=== PATIENT | male | born 1930 | race Caucasian/White ===

== ENCOUNTER 2017-07-15 13:20 | Inpatient (IN) | payer OTHER ==
[~2017-07-15] VITALS: Ht 172.7 cm; Wt 66.7 kg
[2017-07-15 13:33] VITALS: BP 107/84
[2017-07-15 13:38] LABS: ABSOLUTE EOSINOPHILS 0.1 thou/uL (0.0-0.7); ABSOLUTE LYMPHOCYTES 2.4 thou/uL (0.8-5.3); ABSOLUTE MONOCYTES 0.7 thou/uL (0.0-1.2); ABSOLUTE NEUTROPHILS 2.7 thou/uL (1.6-8.1); BASOPHILS 0.8 %; EOSINOPHILS 2.2 %; HEMATOCRIT 26.2 % (42.0-52.0); HEMOGLOBIN 8.6 gm/dL (14.0-18.0); LYMPHOCYTES 39.6 %; MCH 27.7 pg (26.0-34.0); MCHC 32.7 g/dL (28.0-37.0); MCV 84.6 fL (80.0-100.0); MONOCYTES 12.2 %; MPV 8.6 fl. (7.2-11.1); NUCLEATED RBCS 0 /100WBC; PLATELET COUNT* 204 thou/uL (150-400); POLYS 45.2 %; RBC 3.09 mil/uL (4.50-6.00); RDW-CV 17.6 % (10.5-14.5)
[2017-07-15 13:46] LABS: ANION GAP 7 mmol/L (7-16); BUN 31 mg/dL (7-18); CALCIUM 8.5 mg/dL (8.5-10.1); CHLORIDE 105 mmol/L (98-107); CO2 28 mmol/L (21-32); CREATININE 1.7 mg/dL (0.6-1.3); GLUCOSE 112 mg/dL (70-99); POTASSIUM 3.6 mmol/L (3.5-5.1); SODIUM 140 mmol/L (136-145)
[2017-07-15 13:54] LABS: ALBUMIN 2.9 g/dL (3.4-5.0); ALKALINE PHOSPHATASE 90 U/L (46-116); SGOT 28 U/L (15-37); SGPT 17 U/L (30-65); TOTAL BILIRUBIN 0.4 mg/dL (<0.1-1.0); TOTAL PROTEIN 6.7 g/dL (6.4-8.2); TROPONIN-I LEVEL <0.06 ng/mL (<0.06)
[2017-07-15 14:02] LABS: APTT 28.3 Seconds (25.0-31.3); INR 1.1; PROTIME 10.8 Seconds (9.20-11.50)
[2017-07-15 14:25] LABS: URINE BILIRUBIN NEGATIVE (Negative); URINE BLOOD NEGATIVE (Negative); URINE CLARITY CLEAR; URINE COLOR STRAW; URINE GLUCOSE-RANDOM NEGATIVE (Negative); URINE KETONES NEGATIVE (Negative); URINE LEUKOCYTES-REFLEX NEGATIVE (Negative); URINE NITRITE-REFLEX NEGATIVE (Negative); URINE PROTEIN NEGATIVE (Negative); URINE UROBILINOGEN 0.2 E.U./dl (0.2-1.0)
[2017-07-15] MEDS ORDERED: TOPROL XL25 MG PO (14:47)
[2017-07-15] MEDS ORDERED: TRAZODONE HCL100 MG PO (14:47)
[2017-07-15] MEDS ORDERED: OMEPRAZOLE40 MG PO (14:48)
[2017-07-15] MEDS ORDERED: CARDURA4 MG PO (14:48)
[2017-07-15] MEDS ORDERED: VITAMIN D1000 UNIT PO (14:48)
[2017-07-15] MEDS ORDERED: ALLOPURINOL 10100 M1 PO (14:48)
[2017-07-15] MEDS ORDERED: LASIX 40 MG TAB40 M2 PO (14:48)
--- NOTE | 2017-07-15 16:24 | EKG ---
[place] [address] ELECTROCARDIOGRAM REPORT Name: YADIRA ROJO Room: [place] [address] 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 FAIR : 1930 Requested By: Hang Caballero Order Number: [id number] MD: Efren Barba Measurements Intervals [place] Rate: 54 P: -14 AR: 208 QRS: 96 QRSD: 171 T: 8 QT: 516 QTc: 490 Interpretive Statements Sinus rhythm Probable left atrial enlargement Right bundle branch block Baseline wander in lead(s) II,III,aVF No previous ECG available for comparison Electronically Signed On 07-15-2017 16:23:59 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
[2017-07-15 21:30] VITALS: BP 116/76
[2017-07-16] VITALS: BP 111/55
[2017-07-16 01:05] LABS: HEMATOCRIT 26.3 % (42.0-52.0); HEMOGLOBIN 8.6 gm/dL (14.0-18.0); MCH 27.3 pg (26.0-34.0); MCHC 32.5 g/dL (28.0-37.0); MCV 84.2 fL (80.0-100.0); MPV 8.4 fl. (7.2-11.1); RBC 3.13 mil/uL (4.50-6.00); WBC 6.3 thou/uL (4.0-11.0)
[2017-07-16 01:23] LABS: ALBUMIN 2.9 g/dL (3.4-5.0); CALCIUM 8.4 mg/dL (8.5-10.1); CREATININE 1.6 mg/dL (0.6-1.3); MAGNESIUM 2.2 mg/dL (1.8-2.4); POTASSIUM 3.9 mmol/L (3.5-5.1); TOTAL BILIRUBIN 0.3 mg/dL (<0.1-1.0); TOTAL PROTEIN 6.3 g/dL (6.4-8.2)
[2017-07-16 04:00] VITALS: BP 116/61
[2017-07-16 08:17] VITALS: BP 132/67
[2017-07-16 12:00] VITALS: BP 122/57
[2017-07-16 16:00] VITALS: BP 141/53
--- NOTE | 2017-07-16 17:32 | 2DMMODE ---
[place] [address] 2 D/M-MODE ECHOCARDIOGRAM Name: YADIRA ROJO Gabino Room: [address] IN [facility]#: [id number] Admission: 07/15/17 Attend Phys: Amada Ernst, Discharge: Date of : [birth year] Date of Service: 07/16/17 1732 Report #: [id number] THIS REPORT FOR: //name// APPROVED REPORT Study performed: 07/16/2017 11:28:57 EXAM: Comprehensive 2D, Doppler, and color-flow Echocardiogram Patient Location: In-Patient Room #: [facility] Status: 3 BSA: 1.76 HR: 76 bpm BP: 132/67 mmHg Rhythm: NSR Other Information Study Quality: Good Indications Pre-Op 2D Dimensions LVEF(%): 63.50 (>50%) IVSd: 11.35 (7-11mm) LVOT Diam: 22.31 (18-24mm) LVDd: 40.31 mm PWd: 10.80 (7-11mm) Ascending Ao: 32.14 (22-36mm) LVDs: 26.59 (25-40mm) Aortic Root: 35.21 mm Fabian's LVEF: 63.50 % Volumes Left Atrial Volume (Systole) LA ESV Index: 29.20 mL/m2 Aortic Valve AoV Peak Jacoby.: 1.76 m/s AO Peak Gr.: 12.35 mmHg LVOT Max P.55 mmHg AO Mean Gr.: 6.79 mmHg LVOT Mean P.86 mmHg LVOT Max V: 1.18 m/s AO V2 VTI: 40.18 cm LVOT Mean V: 0.79 m/s GUILLERMO (VTI): 2.74 cm2 LVOT V1 VTI: 28.21 cm Mitral Valve E/A Ratio: 1.27 [place] [address] 2 D/M-MODE ECHOCARDIOGRAM Name: YADIRA ROJO Room: [address] IN [facility]#: [id number] Admission: 07/15/17 Attend Phys: Amada Ernst, Discharge: Date of : [birth year] Date of Service: 07/16/17 1732 Report #: [id number] MV Decel. Time: 171.97 ms MV E Max Jacoby.: 0.94 m/s MV PHT: 49.87 ms MVA (PHT): 4.41 cm2 TDI E/Lateral E': 18.80 E/Medial E': 15.67 Medial E' Jacoby.: 0.06 m/s Lateral E' Jacoby.: 0.05 m/s Pulmonary Valve PV Peak Jacoby.: 0.74 m/s PV Peak Gr.: 2.17 mmHg Tricuspid Valve TR Peak Gr.: 24.14 mmHg RVSP: 29.00 mmHg Left Ventricle The left ventricle is normal size. There is normal LV segmental wall motion. There is normal left ventricular wall thickness. Left ventricular systolic function is normal. LVEF is 60-65%. Transmitral Doppler flow pattern suggests impaired LV relaxation. Right Ventricle Right ventricle is mildly dilated. The right ventricular systolic function is normal. Atria Left atrium is mildly dilated. Right atrium is mildly dilated. Aortic Valve Moderate aortic valve sclerosis. No aortic regurgitation is present. There is no aortic valvular stenosis. Mitral Valve The mitral valve is normal in structure. There is no mitral valve regurgitation noted. No evidence of mitral valve stenosis. Tricuspid Valve The tricuspid valve is normal in structure. Mild tricuspid regurgitation. The RVSP is ___29____ mmHg. Pulmonic Valve The pulmonary valve is normal in structure. There is no pulmonic [place] [address] 2 D/M-MODE ECHOCARDIOGRAM Name: YADIRA ROJO Room: [address] IN [facility]#: [id number] Admission: 07/15/17 Attend Phys: Amada Ernst, Discharge: Date of : [birth year] Date of Service: 07/16/17 1732 Report #: [id number] Great Vessels The aortic root is normal in size. IVC is normal in size and collapses with >50% inspiration Pericardium There is no pericardial effusion. <Conclusion> The left ventricle is normal size. There is normal left ventricular wall thickness. Left ventricular systolic function is normal. LVEF is 60-65%. Transmitral Doppler flow pattern suggests impaired LV relaxation. Left atrium is mildly dilated. Right ventricle is mildly dilated. Left atrium is mildly dilated. Right atrium is mildly dilated. Moderate aortic valve sclerosis. There is no aortic valvular stenosis. Mild tricuspid regurgitation. The RVSP is ___29____ mmHg. <ELECTRONICALLY SIGNED> By: Ming Ramirez MD, FACC 07/16/17 173 31 31 Ming Ramirez MD, FACC /INF
[2017-07-16 18:03] VITALS: BP 122/57
[2017-07-17 00:15] VITALS: BP 152/64
[2017-07-17 04:00] VITALS: BP 141/72
[2017-07-17 08:16] VITALS: BP 135/66
[2017-07-17 09:54] LABS: ABSOLUTE EOSINOPHILS 0.1 thou/uL (0.0-0.7); ABSOLUTE LYMPHOCYTES 0.7 thou/uL (0.8-5.3); ABSOLUTE MONOCYTES 0.6 thou/uL (0.0-1.2); ABSOLUTE NEUTROPHILS 5.7 thou/uL (1.6-8.1); BASOPHILS 0.4 %; EOSINOPHILS 1.4 %; HEMATOCRIT 26.5 % (42.0-52.0); HEMOGLOBIN 8.5 gm/dL (14.0-18.0); LYMPHOCYTES 10.2 %; MCH 27.3 pg (26.0-34.0); MCHC 32.2 g/dL (28.0-37.0); MCV 84.8 fL (80.0-100.0); MONOCYTES 8.7 %; MPV 8.2 fl. (7.2-11.1); NUCLEATED RBCS 0 /100WBC; PLATELET COUNT* 195 thou/uL (150-400); POLYS 79.3 %; RBC 3.12 mil/uL (4.50-6.00); RDW-CV 17.6 % (10.5-14.5); WBC 7.2 thou/uL (4.0-11.0)
[2017-07-17 10:02] LABS: CALCIUM 8.2 mg/dL (8.5-10.1); CREATININE 1.3 mg/dL (0.6-1.3); MAGNESIUM 2.2 mg/dL (1.8-2.4); PHOSPHORUS* 2.5 mg/dL (2.5-4.9); POTASSIUM 4.5 mmol/L (3.5-5.1)
[2017-07-17 12:00] VITALS: BP 130/77
[2017-07-17 20:39] VITALS: BP 142/67
[2017-07-18] VITALS: BP 140/68
[2017-07-18 04:00] VITALS: BP 132/64
[2017-07-18 05:42] LABS: CALCIUM 8.1 mg/dL (8.5-10.1); CREATININE 1.4 mg/dL (0.6-1.3); POTASSIUM 4.2 mmol/L (3.5-5.1)
[2017-07-18 05:46] LABS: ABSOLUTE EOSINOPHILS 0.2 thou/uL (0.0-0.7); ABSOLUTE LYMPHOCYTES 0.9 thou/uL (0.8-5.3); ABSOLUTE MONOCYTES 0.8 thou/uL (0.0-1.2); ABSOLUTE NEUTROPHILS 4.9 thou/uL (1.6-8.1); BASOPHILS 0.6 %; EOSINOPHILS 2.4 %; HEMATOCRIT 25.9 % (42.0-52.0); HEMOGLOBIN 8.6 gm/dL (14.0-18.0); LYMPHOCYTES 13.7 %; MCV 84.8 fL (80.0-100.0); MONOCYTES 11.2 %; MPV 9.3 fl. (7.2-11.1); NUCLEATED RBCS 0 /100WBC; PLATELET COUNT* 192 thou/uL (150-400); POLYS 72.1 %; RBC 3.06 mil/uL (4.50-6.00); RDW-CV 17.9 % (10.5-14.5); WBC 6.9 thou/uL (4.0-11.0)
[2017-07-18 05:52] LABS: POC CA IONIZED 4.5 mg/dL (4.5-5.3); POC CREATININE 1.7 mg/dL (0.6-1.3); POC HEMOGLOBIN 7.8 g/dL (12.0-17.0); POC POTASSIUM 3.6 mmol/L (3.5-4.9)
[2017-07-18 11:59] VITALS: BP 129/54
[2017-07-18 15:33] LABS: % SATURATION 15 % (20-39); IRON 34 ug/dL (50-175)
[2017-07-18 16:01] VITALS: BP 143/61
[2017-07-18 20:00] VITALS: BP 161/71
[2017-07-19] VITALS: BP 154/68
[2017-07-19 04:22] VITALS: BP 136/64
[2017-07-19 06:13] LABS: HEMATOCRIT 24.8 % (42.0-52.0); HEMOGLOBIN 8.1 gm/dL (14.0-18.0); MCH 28.3 pg (26.0-34.0); MCHC 32.8 g/dL (28.0-37.0); MCV 86.4 fL (80.0-100.0); RBC 2.88 mil/uL (4.50-6.00); RDW-CV 18.5 % (10.5-14.5); WBC 5.8 thou/uL (4.0-11.0)
[2017-07-19 07:20] LABS: ALBUMIN 1.9 g/dL (3.4-5.0); CALCIUM 7.9 mg/dL (8.5-10.1); CREATININE 1.3 mg/dL (0.6-1.3); MAGNESIUM 2.6 mg/dL (1.8-2.4); POTASSIUM 5.1 mmol/L (3.5-5.1); TOTAL BILIRUBIN 0.3 mg/dL (<0.1-1.0); TOTAL PROTEIN 5.6 g/dL (6.4-8.2)
[2017-07-19 08:00] VITALS: BP 158/83
[2017-07-19 11:00] VITALS: BP 153/74
[2017-07-19 16:00] VITALS: BP 165/82
[2017-07-19 20:00] VITALS: BP 160/71
[2017-07-20] VITALS: BP 147/68
[2017-07-20 04:00] VITALS: BP 152/62
[2017-07-20 06:57] LABS: ABSOLUTE EOSINOPHILS 0.4 thou/uL (0.0-0.7); ABSOLUTE LYMPHOCYTES 0.9 thou/uL (0.8-5.3); ABSOLUTE MONOCYTES 0.7 thou/uL (0.0-1.2); ABSOLUTE NEUTROPHILS 3.7 thou/uL (1.6-8.1); BASOPHILS 0.6 %; EOSINOPHILS 7.3 %; HEMATOCRIT 25.6 % (42.0-52.0); HEMOGLOBIN 8.4 gm/dL (14.0-18.0); LYMPHOCYTES 15.3 %; MCH 29.4 pg (26.0-34.0); MCHC 32.8 g/dL (28.0-37.0); MCV 89.8 fL (80.0-100.0); MONOCYTES 12.4 %; MPV 9.7 fl. (7.2-11.1); NUCLEATED RBCS 0 /100WBC; PLATELET COUNT* 185 thou/uL (150-400); POLYS 64.4 %; RBC 2.85 mil/uL (4.50-6.00); RDW-CV 19.2 % (10.5-14.5); WBC 5.7 thou/uL (4.0-11.0)
[2017-07-20 07:30] VITALS: BP 145/65
[2017-07-20 08:54] LABS: CALCIUM 8.5 mg/dL (8.5-10.1); CREATININE 1.2 mg/dL (0.6-1.3); MAGNESIUM 2.2 mg/dL (1.8-2.4); POTASSIUM 3.9 mmol/L (3.5-5.1)
[2017-07-20 11:00] VITALS: BP 157/117
[2017-07-20 21:53] VITALS: BP 146/69
[2017-07-21 04:00] VITALS: BP 151/58
[2017-07-21 08:00] VITALS: BP 135/64
[2017-07-21 15:35] VITALS: BP 152/64
[2017-07-21 20:35] VITALS: BP 156/60
[2017-07-22 00:23] VITALS: BP 149/68
[2017-07-22 05:11] LABS: HEMATOCRIT 25.5 % (42.0-52.0); HEMOGLOBIN 8.2 gm/dL (14.0-18.0); MCH 27.4 pg (26.0-34.0); MCHC 32.2 g/dL (28.0-37.0); MPV 9.3 fl. (7.2-11.1); RDW-CV 18.3 % (10.5-14.5); WBC 5.5 thou/uL (4.0-11.0)
[2017-07-22 05:29] LABS: CALCIUM 8.8 mg/dL (8.5-10.1); CREATININE 1.2 mg/dL (0.6-1.3); MAGNESIUM 2.4 mg/dL (1.8-2.4); PHOSPHORUS* 3.5 mg/dL (2.5-4.9); POTASSIUM 3.9 mmol/L (3.5-5.1)
[2017-07-22 08:20] VITALS: BP 129/60
[2017-07-22 15:36] VITALS: BP 140/57
[2017-07-22 19:50] VITALS: BP 151/58
--- NOTE | 2017-07-22 23:00 | OP ---
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 PROCEDURE: 1. Paraesophageal hernia reduction. 2. Laparoscopic G-tube. 3. EGD. SURGEON: Iraida Egan MD. ASSISTANTS: 1. Oliva Wong DO. 2. Rafy Traylor DO. ESTIMATED BLOOD LOSS: 20 mL. COMPLICATIONS: None. FINDINGS: Ischemic hemorrhagic changes noted on EGD within the stomach; however, following reduction, EGD easily able to pass through point of obstruction into distal stomach within the abdomen. ANESTHESIA: GET. SPECIMENS: None. COMPLICATIONS: None. DESCRIPTION OF PROCEDURE: Full informed consent obtained preoperatively. Full discussion of risks, benefits, and alternatives. Family agreed to proceed as well as DPOA. The patient was taken to the operating room. We prepped and draped in standard sterile fashion. After timeout with all in agreement, began with a 12-mm incision above the umbilicus, used open Zulema technique to enter safely into the abdomen. We surveyed the abdomen. Of note, there was [address] [address] OPERATIVE REPORT Name: YADIRA ROJO Room: [address] IN [facility]#: [id number] Admission: 07/15/17 Attend Phys: Amada Ernst MD Discharge: Date of : [birth year] Report #: [id number] significant grade 3 paraesophageal hernia with a very wide hiatus. The extent of the stomach was within this. Proximal duodenum was grasped, pulled down hand over hand, pulled the entire stomach into the abdomen and was straightened out. There was significant tension here. I therefore entered into the lesser sac and then used the LigaSure to take down the short gastrics for the extend of the greater curvature. This allowed greater mobilization. There was no enteric injury or bleeding encountered here. I assessed the paraesophageal hernia. Of note, there was extensive repairing. This would have required some sort of biologic mesh. Taking into account the patient's comorbidities and emergency operation, I decided to proceed with temporization with a G-tube. I made sure first that there was no injury to the stomach during this and that the point of obstruction was released. I placed an EGD down the mouth using the Olympus scope, advanced easily into the stomach were multiple hemorrhagic ischemic changes noted within the gastric body. The EGD was visualized through the abdomen confirming that we had passed the point of obstruction. Next, I selected a point on the anterior body of the greater curvature to place the G-tube. was used to open up the serosa and they were sharply entered into the stomach for a [id number] size opening. This was opened with [place]. A ZULEYKA gastrostomy tube was selected, advanced through the abdomen. It was entered into the stomach. A pursestring stitch of 3-0 Vicryl was anchored around it and secured in place. I inflated the balloon up to 7 mL. I placed stitches of 3-0 Vicryl at 4 points around this and they were pulled up with Fritz-Dandre technique up through the abdomen. All needles were removed and seen directly and accounted for. Next, I brought the balloon up to the point of the stomach. The button was anchored down the stomach, sutured in 4 places with Prolene and the stitches brought out through separate stab incisions were anchored down as well. I inspected the integrity of the entire stomach. I saw no evidence of any injuries and I saw no bleeding. Abdomen was completely desufflated. The 12-mm port site was closed with 0 Vicryl on a Fritz-Dandre. 0 Vicryl and UR-6 used to close the umbilical fascia with good approximation. I palpated. There was no entrapped contents. 4-0 Monocryl to close the skin. Dermabond applied. Sponge, needle, instrument counts correct at the end of the case. The patient tolerated well. <ELECTRONICALLY SIGNED> By: Iraida Egan MD 07/22/17 5610 [id number] Egan MD /bebeto
--- NOTE | 2017-07-22 23:00 | OP ---
[address] [address] OPERATIVE REPORT Name: YADIRA ROJO Room: [address] IN M.R.#: [id number] Admission: 07/15/17 Attend Phys: Amada Ernst MD Discharge: Date of : [birth year] Report #: [id number] THIS REPORT FOR: //name// CC: Kameron Ernst Primary Care Provider DATE OF SERVICE: 07/16/2017 PREOPERATIVE DIAGNOSIS: Incarcerated paraesophageal hernia, possible volvulus. POSTOPERATIVE DIAGNOSIS: Incarcerated paraesophageal hernia, possible volvulus. PROCEDURE 1. Paraesophageal hernia reduction. 2. EGD. 3. Laparoscopic gastrostomy tube. SURGEON: Iraida Egan MD. 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 Oliva Wong DO. 2. Neymar Traylor DO. ESTIMATED BLOOD LOSS: 20. COMPLICATIONS: None. FINDINGS: Ischemic changes on EGD without full thickness necrosis in a patchy distribution consistent with obstruction, but clearly patent into body of stomach on EGD. ANESTHESIA: GET. COMPLICATIONS: None. DESCRIPTION OF PROCEDURE: Full informed consent is obtained through laborious process with family as documented in the chart. The patient was taken to operating room, prepped and draped in a standard sterile fashion. Timeout was performed with all in agreement. We began with an open Zulema, 12 mm incision above the umbilicus. Additional ports were placed, placed the patient head up. The duodenum was visible at the very enlarged esophageal hiatus. This was not amenable to simple stitching and would have required mesh repair. I walked hand over hand and slowly reduced the stomach, some degree of adhesion was taken down with LigaSure between the sac, left ____ hiatus and the stomach. In addition in order to mobilize fully, I took down the short gastrics along the [address] [address] OPERATIVE REPORT Name: YADIRA ROJO Room: [address] IN [facility]#: [id number] Admission: 07/15/17 Attend Phys: Amada Ernst MD Discharge: Date of : [birth year] Report #: [id number] curvature up towards the cardia. I was able to reduce the stomach completely up to the level of the GE junction. I assessed the potential for hiatus closure or mesh replacement and given his advanced age and very debilitated status, I wanted to make the operation as quick as possible; therefore, I decided to proceed with laparoscopic G-tube placement. A laparoscopic ZULEYKA G-tube was selected and placed through a stab incision in the left lower quadrant. A small gastrostomy was made with hot scissors and this was opened up. I placed a pursestring stitch with 3-0 Vicryl laparoscopically. I advanced the GJ tube into the stomach. It was clearly internal. Next, I inflated my balloon up to 7 mL and tied down the pursestring stitch. Next, I would perform an EGD. The Olympus GI endoscope was advanced through the mouth, down the esophagus, into the stomach and along the greater curvature. I was able to see the G-tube from this angle. I also noted some degree of ischemic changes within the gastric body and from the laparoscopic view you could see the tip of the feeding tube pushing inferiorly on the stomach from within the abdomen as well as light confirming entry into the stomach. The scope was slowly withdrawn. I saw no concerning areas within the esophagus. It was removed from the mouth. Next, I placed four additional stitches using the 3-0 Vicryl in order to anchor the stomach to the anterior abdominal wall, used Fritz-Dandre stitches to pull these tight through four separate stab incisions. These were tied down. Clearly, the G-tube was secure. Ports were opened at this time and flushed easily. I next closed my 12 mm incision with a Fritz-Dandre technique. The ports were removed under direct visualization and I made sure there was no bleeding; 4-0 Monocryl was used to close the skin. Dermabond applied. Abdominal binder was placed over the G-tube to prevent the patient from pulling this out. Sponge, needle and instrument counts were correct at the end of the case. The patient tolerated well. <ELECTRONICALLY SIGNED> By: Iraida Egan MD 07/22/17 2300 [id number] Michelle Egan MD /nt
[2017-07-23 04:00] VITALS: BP 147/68
[2017-07-23 06:00] LABS: CALCIUM 8.5 mg/dL (8.5-10.1); CREATININE 1.1 mg/dL (0.6-1.3); MAGNESIUM 2.3 mg/dL (1.8-2.4); POTASSIUM 3.9 mmol/L (3.5-5.1)
[2017-07-23 07:45] VITALS: BP 137/60
[2017-07-23 12:00] VITALS: BP 97/42
[2017-07-23 16:00] VITALS: BP 121/55
[2017-07-23 19:45] VITALS: BP 132/57
[2017-07-24] VITALS: BP 133/63
[2017-07-24 04:00] VITALS: BP 129/67
[2017-07-24 04:38] LABS: ABSOLUTE EOSINOPHILS 0.3 thou/uL (0.0-0.7); ABSOLUTE LYMPHOCYTES 1.1 thou/uL (0.8-5.3); ABSOLUTE MONOCYTES 0.7 thou/uL (0.0-1.2); ABSOLUTE NEUTROPHILS 2.6 thou/uL (1.6-8.1); BASOPHILS 0.9 %; HEMATOCRIT 24.3 % (42.0-52.0); HEMOGLOBIN 8.1 gm/dL (14.0-18.0); LYMPHOCYTES 23.9 %; MCH 28.3 pg (26.0-34.0); MCHC 33.4 g/dL (28.0-37.0); MCV 84.9 fL (80.0-100.0); MONOCYTES 14.1 %; MPV 9.1 fl. (7.2-11.1); NUCLEATED RBCS 0 /100WBC; PLATELET COUNT* 230 thou/uL (150-400); POLYS 55.1 %; RBC 2.86 mil/uL (4.50-6.00); RDW-CV 18.4 % (10.5-14.5); WBC 4.8 thou/uL (4.0-11.0)
[2017-07-24 05:15] LABS: CALCIUM 8.7 mg/dL (8.5-10.1); CREATININE 1.1 mg/dL (0.6-1.3); MAGNESIUM 2.2 mg/dL (1.8-2.4); PHOSPHORUS* 3.8 mg/dL (2.5-4.9)
[2017-07-24 09:32] VITALS: BP 138/62
[2017-07-24 15:29] VITALS: BP 127/60
[2017-07-24 20:15] VITALS: BP 126/50
[2017-07-25 07:41] VITALS: BP 130/56
[2017-07-25 15:26] VITALS: BP 135/61
[2017-07-26 07:30] VITALS: BP 107/51
[2017-07-26 16:00] VITALS: BP 138/59
[2017-07-27 09:45] VITALS: BP 126/78
[2017-07-27 16:00] VITALS: BP 129/66; BP 136/72
[2017-07-28 08:45] VITALS: BP 142/68
[2017-07-28 13:29] VITALS: BP 142/68
[2017-07-28 15:00] VITALS: BP 128/59
[2017-07-28 20:40] VITALS: BP 120/81
[2017-07-29 06:23] LABS: ALBUMIN 2.5 g/dL (3.4-5.0); CALCIUM 8.4 mg/dL (8.5-10.1); CREATININE 1.3 mg/dL (0.6-1.3); MAGNESIUM 2.6 mg/dL (1.8-2.4); PHOSPHORUS* 3.1 mg/dL (2.5-4.9); POTASSIUM 4.8 mmol/L (3.5-5.1); TOTAL BILIRUBIN 0.3 mg/dL (<0.1-1.0); TOTAL PROTEIN 6.3 g/dL (6.4-8.2)
[2017-07-29 08:02] VITALS: BP 136/76
[2017-07-29 15:41] VITALS: BP 131/59
[2017-07-30] VITALS (10 sets, daily range): BP systolic 120–152; BP diastolic 44–71
[2017-07-30 08:05] LABS: ABSOLUTE BASOPHILS 0.1 thou/uL (0.0-0.2); ABSOLUTE EOSINOPHILS 0.3 thou/uL (0.0-0.7); ABSOLUTE MONOCYTES 0.6 thou/uL (0.0-1.2); ABSOLUTE NEUTROPHILS 3.4 thou/uL (1.6-8.1); BASOPHILS 1.1 %; HEMATOCRIT 26.8 % (42.0-52.0); HEMOGLOBIN 8.7 gm/dL (14.0-18.0); LYMPHOCYTES 19.1 %; MCH 27.2 pg (26.0-34.0); MCHC 32.5 g/dL (28.0-37.0); MCV 83.6 fL (80.0-100.0); MONOCYTES 11.2 %; MPV 8.8 fl. (7.2-11.1); NUCLEATED RBCS 0 /100WBC; PLATELET COUNT* 335 thou/uL (150-400); POLYS 63.6 %; RBC 3.21 mil/uL (4.50-6.00); WBC 5.4 thou/uL (4.0-11.0)
[2017-07-30 08:17] LABS: CALCIUM 8.6 mg/dL (8.5-10.1); CREATININE 1.2 mg/dL (0.6-1.3); MAGNESIUM 2.5 mg/dL (1.8-2.4); POTASSIUM 4.4 mmol/L (3.5-5.1)
[2017-07-31 06:19] LABS: HEMATOCRIT 29.1 % (42.0-52.0); HEMOGLOBIN 9.2 gm/dL (14.0-18.0); MCH 26.9 pg (26.0-34.0); MCHC 31.5 g/dL (28.0-37.0); MCV 85.2 fL (80.0-100.0); MPV 8.8 fl. (7.2-11.1); RBC 3.41 mil/uL (4.50-6.00); RDW-CV 18.6 % (10.5-14.5); WBC 5.5 thou/uL (4.0-11.0)
[2017-07-31 06:24] LABS: CREATININE 1.2 mg/dL (0.6-1.3); POTASSIUM 4.2 mmol/L (3.5-5.1)
[2017-07-31 17:00] VITALS: BP 103/42
[2017-07-31 20:30] VITALS: BP 106/40
[2017-07-31 23:14] VITALS: BP 115/68
[2017-08-01 15:43] VITALS: BP 96/48
[2017-08-01 15:45] VITALS: BP 96/48
[2017-08-01 22:20] VITALS: BP 124/64
[2017-08-02 08:00] VITALS: BP 128/43
[2017-08-02 15:46] VITALS: BP 105/61
[2017-08-03 08:30] VITALS: BP 106/54
[2017-08-03 12:05] VITALS: BP 142/68
[2017-08-03] MEDS ORDERED: RISPERDAL 1 MG T1 MG PO (12:14)
[2017-08-03] MEDS ORDERED: SCOPOLAMINE1 EACH TRANSDERM (12:15)
[2017-08-03] MEDS ORDERED: TRAZODONE HCL100 MG PO (12:16)
[2017-08-03] MEDS ORDERED: TYLENOL325 MG PO (12:18)
[2017-08-03] MEDS ORDERED: ZOFRAN ODT4 MG DISSOLVE (12:19)
[2017-08-03] MEDS ORDERED: ATIVAN0.5 MG PO (12:20)
[2017-08-03] MEDS ORDERED: MSL20MG/ML PO (12:23)
[2017-08-03] MEDS ORDERED: ALUMINUM H320 MG/5 M PO (12:34)
[2017-08-03] MEDS ORDERED: ARTIFICIAL TEA1 EACH OPHTHALMIC (12:42)
[2017-08-03] MEDS ORDERED: ATROPINE SULFATE2 ML PO (12:50)
[2017-08-03 13:55] VITALS: BP 142/68
[2017-08-03 17:12] VITALS: BP 142/68
== END 2017-08-03 14:00 | disposition hospice, inpatient (51) | DRG 326 ==
LOC: M.ERS 13:20 → M.2W 14:58 → M.TBA-ER 14:58 → M.2W 21:32 → M.ORTHSURG 07-23 17:15
PROVIDERS: Emergency Medicine Emergency Medical Services; Internal Medicine; Surgery; ADMIT Internal Medicine
PROC: B24BZZ4 Ultrasonography of Heart with Aorta, Transesophageal (ICD-10-PCS; principal; 2017-07-16)
PROC: 0DH64UZ Insertion of Feeding Device into Stomach, Percutaneous Endoscopic Approach (ICD-10-PCS; principal; 2017-07-16)
PROC: 0BQT0ZZ Repair Diaphragm, Open Approach (ICD-10-PCS; principal; 2017-07-16)
PROC: 0DJ08ZZ Inspection of Upper Intestinal Tract, Via Natural or Artificial Opening Endoscopic (ICD-10-PCS; principal; 2017-07-16)
PROC: 05HY33Z Insertion of Infusion Device into Upper Vein, Percutaneous Approach (ICD-10-PCS; 2017-07-17)
DX: K44.0 Diaphragmatic hernia with obstruction, without gangrene (principal); E43 Unspecified severe protein-calorie malnutrition; J15.6 Pneumonia due to other Gram-negative bacteria; G93.40 Encephalopathy, unspecified; J98.11 Atelectasis; R65.10 Systemic inflammatory response syndrome (SIRS) of non-infectious origin without acute organ dysfunction; I77.4 Celiac artery compression syndrome; K56.7 Ileus, unspecified; Z66 Do not resuscitate; Z51.5 Encounter for palliative care; I12.9 Hypertensive chronic kidney disease with stage 1 through stage 4 chronic kidney disease, or unspecified chronic kidney disease; D64.9 Anemia, unspecified; R32 Unspecified urinary incontinence; H91.90 Unspecified hearing loss, unspecified ear; N18.3 Chronic kidney disease, stage 3 (moderate); M10.9 Gout, unspecified; F03.90 Unspecified dementia, unspecified severity, without behavioral disturbance, psychotic disturbance, mood disturbance, and anxiety; R01.1 Cardiac murmur, unspecified; E78.5 Hyperlipidemia, unspecified; I73.9 Peripheral vascular disease, unspecified; Z85.46 Personal history of malignant neoplasm of prostate; Z86.010 Personal history of colon polyps; Z79.899 Other long term (current) drug therapy; Z68.22 Body mass index [BMI] 22.0-22.9, adult; Z23 Encounter for immunization